=== PATIENT | male | born 1960 | race Caucasian/White ===

== ENCOUNTER 2016-09-26 10:57 | Emergency (ER) | payer MEDICARE ==
[~2016-09-26] VITALS: Wt 73.0 kg
[~2016-09-26 10:57] MED LIST: DENIES
[2016-09-26] MEDS ORDERED: BACTDS PO (11:57)
[2016-09-26] MEDS ORDERED: CEPH-443 PO (11:57)
--- NOTE | 2016-09-26 12:01 | ERD ---
ER Documentation Chief Complaint Date/Time DATE: 09/26/16 TIME: 11:58 Chief Complaint LEFT ARM ULCERATIONS FOR THE PAST WEEK. NO DRAINAGE. NO FEVERS HPI This is a 56-year-old male who is homeless presenting to the emergency room complaining of patches of redness and scabs on his left arm for the past week. Patient denies any IV drug use. Denies any other drug use. He denies any fevers. Denies any trauma. He states that he has not taken any medications for this ROS All systems reviewed and are negative except as per history of present illness. Medications Home Meds Active Scripts Sulfamethoxazole-Trimethoprim* (Bactrim* DS) 800-160 Mg Tab, 1 TAB PO BID for 10 Days, TAB Prov:TOD CENTENO PA-C 09/26/16 Cephalexin* (Keflex*) 500 Mg Capsule, 500 MG PO QID for 10 Days, CAP Prov:TOD CENTENO PA-C 09/26/16 Reported Medications [Denies] No Conflict Check 02/08/10 Allergies Allergies: Coded Allergies: No Known Allergies (Verified Allergy, Mild, 02/08/10) PMhx/Soc History of Surgery: Yes (RIGHT SHOUDLER) Anesthesia Reaction: No Hx Neurological Disorder: No Hx Respiratory Disorders: No Hx Cardiac Disorders: No Hx Psychiatric Problems: No Hx Miscellaneous Medical Probl: No Hx Alcohol Use: No Hx Substance Use: No Hx Tobacco Use: Yes Smoking Status: Never smoker Physical Exam Vitals Vital Signs Date Time Temp Pulse Resp B/P Pulse Ox O2 Delivery O2 Flow Rate FiO2 09/26/16 11:01 98.8 86 21 160/81 98 Physical Exam General: WD/WN, in no apparent distress, non-toxic appearing HENT: NC/AT Eyes: Conjunctiva normal Neck: Supple Pulm: Clear to auscultation, normal labored breathing; no wheezing/rales/ rhonchi heard CV: Good capillary refill GI: Non-distended, no guarding Back: No masses Ext: No clubbing, cyanosis, or edema Neuro: Moves on all fours Skin: Few patches of erythema and indurated with central scabs, around 5cm in diameter Normal turgor, color, and temperature. No ulcerations or rashes noted. Psych: Normal mood Procedures/MDM This is a 56-year-old male who is homeless presenting to the emergency room complaining of patches of redness and scabs on his left arm for the past week. Patient denies any IV drug use. On examination patient had patches of erythema induration with central scabbing, likely due to cellulitis most likely due to skin popping or folliculitis. Patient will benefit from antibiotics Keflex and Bactrim. I discussed to follow-up at his clinic or return to the ER for 2 days for wound check. Discussed return to the ER for any worsening signs or symptoms. There was no evidence of osteomyelitis, lymphangitis, bacteremia. Departure Diagnosis: Primary Impression: Cellulitis Site of cellulitis: extremity Site of cellulitis of extremity: upper extremity Laterality: right Qualified Code: L03.113 - Cellulitis of right upper extremity Condition: Stable Patient Instructions: Cellulitis, Folliculitis, Mrsa Skin Infection, Suspected Or Confirmed Referrals: [facility] YOU HAVE RECEIVED A MEDICAL SCREENING EXAM AND THE RESULTS INDICATE THAT YOU DO NOT HAVE A CONDITION THAT REQUIRES URGENT TREATMENT IN THE EMERGENCY DEPARTMENT. FURTHER EVALUATION AND TREATMENT OF YOUR CONDITION CAN WAIT UNTIL YOU ARE SEEN IN YOUR DOCTORS OFFICE WITHIN THE NEXT 1-2 DAYS. IT IS YOUR RESPONSIBILITY TO MAKE AN APPOINTMENT FOR FOLOW-UP CARE. IF YOU HAVE A PRIMARY DOCTOR --you should call your primary doctor and schedule and appointment IF YOU DO NOT HAVE A PRIMARY DOCTOR YOU CAN CALL OUR PHYSICIAN REFERRAL HOTLINE AT . IF YOU CAN NOT AFFORD TO SEE A PHYSICIAN YOU CAN CHOSE FROM THE FOLLOWING [facility] INSTITUTIONS: [facility] [id number] [place] [address] [facility] [address] [place] [address] [facility] [address] [place] [address] [facility] YOU HAVE RECEIVED A MEDICAL SCREENING EXAM AND THE RESULTS INDICATE THAT YOU DO NOT HAVE A CONDITION THAT REQUIRES URGENT TREATMENT IN THE EMERGENCY DEPARTMENT. FURTHER EVALUATION AND TREATMENT OF YOUR CONDITION CAN WAIT UNTIL YOU ARE SEEN IN YOUR DOCTORS OFFICE WITHIN THE NEXT 1-2 DAYS. IT IS YOUR RESPONSIBILITY TO MAKE AN APPOINTMENT FOR FOLOW-UP CARE. IF YOU HAVE A PRIMARY DOCTOR --you should call your primary doctor and schedule an appointment IF YOU DO NOT HAVE A PRIMARY DOCTOR YOU CAN CALL OUR PHYSICIAN REFERRAL HOTLINE AT IF YOU CAN NOT AFFORD TO SEE A PHYSICIAN YOU CAN CHOSE FROM THE FOLLOWING [facility] CLINICS [facility] [address] [facility] [address] [facility] [address] [facility] [address] [facility] [facility] [address] [facility]. [facility] [address] Additional Instructions: FOLLOW UP WITH YOUR PRIMARY CARE PHYSICIAN TOMORROW.Return to this facility if you are not improving as expected. Follow up in 2 days in your clinic for wound check. Take all medicines as directed. Return to this facility if you are not improving as expected. TOD CENTENO PA-C Sep 26, 2016 12:01
[2016-09-26 12:10] VITALS: TEMP 98.2
== END 2016-09-26 12:10 | disposition home or self-care (01) ==
LOC: FTE 10:57
DX: L03.113 Cellulitis of right upper limb (principal); Z87.891 Personal history of nicotine dependence
CPT/HCPCS: 99284

== ENCOUNTER 2016-10-07 14:34 | Emergency (ER) | payer SELFPAY ==
[~2016-10-07] VITALS: Ht 170.2 cm; Wt 78.0 kg
[~2016-10-07 14:34] MED LIST changes: +BACTDS PO; +CEPH-443 PO
[2016-10-07 14:39] VITALS: Ht 170.2 cm; Wt 78.0 kg
== END 2016-10-07 16:01 | disposition left against medical advice (07) ==
LOC: FTE 14:34
DX: Z53.21 Procedure and treatment not carried out due to patient leaving prior to being seen by health care provider (principal)